=== PATIENT | female | born 1990 | race African-American/Black ===

== ENCOUNTER 2020-07-30 21:30 | Emergency (ER) | payer OTHER ==
[2020-07-30 21:37] VITALS: BP 112/78; PULSE 76; TEMP 98.2; BMI 48.4
[2020-07-30] MEDS ORDERED: SODIUM CHLORIDE 1,000 ML IV STA (22:16)
[2020-07-30] MEDS ORDERED: KETOROLAC TROMETHAMINE 30 MG/1 ML VIAL IVPUSH ONE (22:16)
[2020-07-30] MEDS ORDERED: NAPROXEN 500 MG TABLET PO ONE (23:25)
[2020-07-30] MEDS ORDERED: NAPROXEN 500 MG TABLET ONE (23:26)
== END 2020-07-31 00:59 | disposition home or self-care (01) ==
LOC: FER 21:30
PROC: 3E0333Z Introduction of Anti-inflammatory into Peripheral Vein, Percutaneous Approach (ICD-10-PCS; principal; 2020-07-30)
PROC: 3E0337Z Introduction of Electrolytic and Water Balance Substance into Peripheral Vein, Percutaneous Approach (ICD-10-PCS; 2020-07-30)
DX: G44.209 Tension-type headache, unspecified, not intractable (principal)
CPT/HCPCS: 36415; 93005; 99284-25

== ENCOUNTER 2021-11-01 21:10 | Emergency (ER) | payer OTHER ==
[2021-11-01 21:23] VITALS: BP 122/81; PULSE 84; RESP 17; TEMP 99; BMI 46.5
== END 2021-11-01 22:32 | disposition home or self-care (01) ==
LOC: FER 21:10
DX: O26.891 Other specified pregnancy related conditions, first trimester (principal); R10.32 Left lower quadrant pain; Z3A.12 12 weeks gestation of pregnancy
CPT/HCPCS: 76817-TC; 99284-25

== ENCOUNTER 2022-12-06 19:14 | Emergency (ER) | payer OTHER ==
[2022-12-06 19:34] VITALS: BP 105/72; PULSE 76; RESP 19; TEMP 98.6; BMI 48.6
[2022-12-06] MEDS ORDERED: ASPIRIN 81 MG CHEWABLE TABLETS PO ONE (19:48)
[2022-12-06] MEDS ORDERED: ASPIRIN 81 MG CHEWABLE TABLETS ONE (19:52)
== END 2022-12-06 20:52 | disposition home or self-care (01) ==
LOC: FER 19:14
DX: R07.89 Other chest pain (principal); R06.02 Shortness of breath; R00.2 Palpitations
CPT/HCPCS: 36415; 82550; 84484; 93005; 99284-25

== ENCOUNTER 2023-05-22 09:18 | Emergency (ER) | payer OTHER ==
[2023-05-22 09:59] VITALS: BP 110/70; PULSE 76; RESP 16; TEMP 98.7; BMI 48.6
[2023-05-22] MEDS ORDERED: KETOROLAC TROMETHAMINE 30 MG/1 ML VIAL ONE (10:06)
[2023-05-22] MEDS: KETOROLAC TROMETHAMINE 30 MG/1 ML VIAL IM ONE (10:25)
[2023-05-22] MEDS ORDERED: LIDOCAINE 5% TOPICAL PATCH ONE ×2 (10:27→10:58)
[2023-05-22] MEDS: LIDOCAINE 5% TOPICAL PATCH TP ONE (11:01)
[2023-05-22] MEDS ORDERED: LIDOCAINE PATCH REMOVAL MC ONE (22:00)
== END 2023-05-22 11:27 | disposition home or self-care (01) ==
LOC: FER 09:18
PROC: 3E0233Z Introduction of Anti-inflammatory into Muscle, Percutaneous Approach (ICD-10-PCS; principal; 2023-05-22)
DX: R51.9 Headache, unspecified (principal); M54.2 Cervicalgia; M54.50 Low back pain, unspecified; V43.52XA Car driver injured in collision with other type car in traffic accident, initial encounter; Y92.410 Unspecified street and highway as the place of occurrence of the external cause
CPT/HCPCS: 70450-TC; 72125-TC; 99284-25

== ENCOUNTER 2023-08-13 19:27 | Emergency (ER) | payer OTHER ==
[2023-08-13 19:46] VITALS: BP 145/84; PULSE 90; RESP 16; TEMP 98.3; BMI 49.1
[2023-08-13] MEDS ORDERED: SULFAMETHOXAZOLE/TRIMETHOPRIM 800MG/160MG D.S. TABLET ONE (20:06)
[2023-08-13] MEDS: SULFAMETHOXAZOLE/TRIMETHOPRIM 800MG/160MG D.S. TABLET PO ONE (20:07)
== END 2023-08-13 20:13 | disposition home or self-care (01) ==
LOC: FER 19:27
DX: N61.1 Abscess of the breast and nipple (principal)
CPT/HCPCS: 99283-25

== ENCOUNTER 2024-01-16 20:03 | Emergency (ER) | payer OTHER ==
[2024-01-16 20:17] VITALS: BP 109/77; PULSE 75; RESP 18; TEMP 98.6; BMI 48.6
== END 2024-01-16 21:27 | disposition home or self-care (01) ==
LOC: FER 20:03
PROC: 0H95XZZ Drainage of Chest Skin, External Approach (ICD-10-PCS; principal; 2024-01-16)
DX: N61.1 Abscess of the breast and nipple (principal)
CPT/HCPCS: 99283-25